=== PATIENT | female | born 1960 | race Caucasian/White ===

== ENCOUNTER 2017-11-01 09:47 | Emergency (ER) | payer OTHER ==
[2017-11-01] MEDS ORDERED: NS 1,000 ML IV ONE (09:56)
[2017-11-01] MEDS ORDERED: ONDANSETRON 4 MG/2 ML VIAL IVP ONE (09:56)
[2017-11-01 10:13] LABS: PLATELET COUNT 314 10^3/uL (150-400)
--- NOTE | 2017-11-01 10:49 | EDPHY ---
H & P Smoking Status: Current every day smoker Time Seen by Provider: 11/01/17 10:30 HPI/ROS: CHIEF COMPLAINT: Nausea, vomiting HISTORY OF PRESENT ILLNESS: 57-year-old female presents to the emergency department with multiple episodes of nausea vomiting and diarrhea since last evening. The patient is currently staying at the group home. No known ill contacts. No fevers or chills. Some abdominal cramping. No fevers or chills. No recent travel. No melena. No urinary symptoms. No back pain. She had some sneezing last night. No cough. No chest pain or difficulty breathing. REVIEW OF SYSTEMS: Constitutional: No fever, no chills. Eyes: No double or blurry vision. ENT: No sore throat. Respiratory: No cough, no shortness of breath. Cardiac: No chest pain. Gastrointestinal: Nausea, vomiting. Diarrhea. Abdominal cramping. Genitourinary: No dysuria. Musculoskeletal: No neck or back pain. Skin: No rashes. Neurological: No headache. (DeloresChen weir) Past Medical/Surgical History: Fibromyalgia, celiac disease (DeloresChen weir) Social History: Homeless staying at the group home from [place] (jBChen M) Physical Exam: General Appearance: Alert, no distress. No apparent distress. Resting in a darkened room. Eyes: Pupils equal and round. Extraocular motions are all intact. ENT: Mouth: Mucous membranes slightly dry purine. Respiratory: No wheezing, rhonchi, or rales, lungs are clear to auscultation. Cardiovascular: Regular rate and rhythm. Gastrointestinal: Abdomen is soft and nontender, no masses, no rebound or guarding, bowel sounds normal. No CVA tenderness bilaterally. Neurological: Alert and oriented x 3, cranial nerves II through XII grossly intact Skin: Warm and dry, no rashes. Musculoskeletal: Nontender to palpate along the cervical, thoracic or lumbar spine. Neck is supple. Extremities: Full range of motion and no peripheral edema. Psychiatric: Patient is oriented X 3, there is no agitation. (BjChen) Constitutional: Initial Vital Signs Temperature (C) 36.7 C 11/01/17 09:54 Heart Rate 118 H 11/01/17 09:54 Respiratory Rate 16 11/01/17 09:54 Blood Pressure 117/80 11/01/17 09:54 O2 Sat (%) 96 11/01/17 09:54 O2 Delivery Mode Room Air Allergies/Adverse Reactions: No Known Allergies Allergy (Unverified 11/01/17 09:53) Home Medications: Medication Instructions Recorded NK [No Known Home Meds] 11/01/17 Medical Decision Making ED Course/Re-evaluation: I do not think this patient has an acute abdomen. I do not think imaging studies are indicated. Patient was given 4 mg of IV Zofran. She was feeling better. She is requesting ice chips and something to drink. Laboratory studies reveal slightly elevated white blood cell count [id number]. Chemistries are otherwise unremarkable. Patient was requesting oral ibuprofen. She states"I want my 800 mg of ibuprofen ". She has a history of fibromyalgia and feels that this is acting up. Patient was given oral ibuprofen per her request. She was tolerating p.o. Fluids and will be discharged. She was given referral to [facility]. (Chen Lorenzo) I did not see this patient while she was in the emergency department. However her care was discussed with the PA while the patient was in the department. I agree with treatment plan and management (Marv Melendez) Differential Diagnosis: Including but not limited to dehydration, gastritis, peptic ulcer disease, electrolyte abnormality, gastroenteritis, anxiety (Chen Lorenzo) - Data Points Laboratory Results: Laboratory Results 11/01/17 10:00 11/01/17 10:00 11/01/17 10:00 WBC 12.31 10^3/uL H 10^3/uL (3.80-9.50) RBC 4.99 10^6/uL 10^6/uL (4.18-5.33) Hgb 15.8 g/dL g/dL (12.6-16.3) Hct 46.4 % % (38.0-47.0) Medications Given: Discontinued Medications Sodium Chloride (Ns) 1,000 mls @ 0 mls/hr IV ONCE ONE PRN Reason: Wide Open Stop: 11/01/17 09:57 Last Admin: 11/01/17 10:00 Dose: 1,000 mls Ibuprofen (Motrin) 800 mg PO EDNOW ONE Stop: 11/01/17 13:19 Last Admin: 11/01/17 13:23 Dose: 800 mg Ondansetron HCl (Zofran) 4 mg IVP EDNOW ONE Stop: 11/01/17 09:57 Last Admin: 11/01/17 10:00 Dose: 4 mg Departure - Departure Disposition: Home, Routine, Self-Care Clinical Impression: Gastroenteritis Condition: Good Instructions: Gastroenteritis (ED) Additional Instructions: Clear liquids and slowly advance diet as tolerated. Referrals: [facility],. [Clinic] - As per Instructions
[2017-11-01] MEDS ORDERED: ONDANSETRON DISINTEGRATING 4 MG TAB ONE (12:53)
[2017-11-01 13:13] VITALS: BP 114/77
[2017-11-01] MEDS ORDERED: IBUPROFEN 800 MG TAB PO ONE (13:18)
--- NOTE | 2017-11-01 19:27 | ASMTCMCOM ---
CM Note CM Note Notes: Pt presented to the ED for N/V/D since last night. Pt is homeless and has been staying at the [facility]. [place] Pt requesting assistance with various issues such as "not being able to carry this backpack around all day while I'm sick." We discussed the other resources this CM had to offer which was not much since pt already is enrolled in [facility] and her CM Robert and Elida(sp?) have been helping her with her resume, SSDI benefits, etc. Pt was concerned she wouldn't be able to stay at the [facility] long term [facility] because she didn't stay there last night. This CM called [facility] CM front man ([phone]) and spoke with NADER Jarquin, who confirmed patient would be eligible to stay at the [facility] (Tenriism Dwayne Quevedohamlet). This was communicated to the patient and she was appreciative. Pt provided one local bus pass (pt is disabled and has Medicare so provided her one of the discounted tickets). Pt aware of needing to follow up with CM at [facility] tomorrow and to also follow up with [facility] and establish a PCP. CM available for further assistance if needed. Date Signed: 11/01/2017 07:26 PM Electronically Signed By:Deneen Cano RN
--- NOTE | 2017-11-01 19:29 | ASDISCHSUM ---
Discharge Information Plan Status:Homeless/Nursing Home Medically Cleared to Leave: Discharge Date:11/01/2017 01:25 PM CM D/C Disposition:Streets (Homeless) ADT D/C Disposition:Home, Routine, Self-Care Projected Discharge Date:11/01/2017 01:25 PM Transportation at D/C:Bus Ticket Discharge Delay Reason: Follow-Up Date:11/01/2017 01:25 PM Discharge Slot: Final Diagnosis: Placement Information Patient Contact Information Contact Name:BERONICAValentina Relationship: Address: Home Phone: Work Phone: City: Alternate Phone: State/Zip Code: Email: Financial Information Financial Class:Medicare Primary Plan Desc:MEDICARE OUTPATIENT Primary Plan Number:[id number] Secondary Plan Desc: Secondary Plan Number: Assessment Information [facility] CM Progress Note CM Note CM Note Notes: Pt presented to the ED for N/V/D since last night. Pt is homeless and has been staying at the [facility]. Patient moved to [place] from [place] "[place] Pt requesting assistance with various issues such as "not being able to carry this backpack around all day while I'm sick." We discussed the other resources this CM had to offer which was not much since pt already is enrolled in [facility] and her CM Robert and Elida(sp?) have been helping her with her resume, SSDI benefits, etc. Pt was concerned she wouldn't be able to stay at the [facility] [place] [facility] because she didn't stay there last night. This CM called [facility] CM front maker lockstitch ([phone]) and spoke with NADER Jarquin, who confirmed patient would be eligible to stay at the [facility] (Religious Dwayne Rios). This was communicated to the patient and she was appreciative. Pt provided one local bus pass (pt is disabled and has Medicare so provided her one of the discounted tickets). Pt aware of needing to follow up with CM at [facility] tomorrow and to also follow up with [facility] and establish a PCP. CM available for further assistance if needed. Date Signed: 11/01/2017 07:26 PM Electronically Signed By:Deneen Cano RN Intervention Information Intervention Type:Health Clinic Date of Service:11/01/2017 07:27 PM Patient Type:Emergency Room Staff Member:VELMA Cano [place] Hours:0.25 Discipline:Accounts Receivable Specialist Severity: Comment:[facility] referral Intervention Type:Community Resources Date of Service:11/01/2017 07:27 PM Patient Type:Emergency Room Staff Member:VELMA Cano [place] Hours:0.25 Discipline:Accounts Receivable Specialist Severity: Comment:[facility] Intervention Type:Bus Pass Date of Service:11/01/2017 07:27 PM Patient Type:Emergency Room Staff Member:VELMA Cano [place] Hours:0.25 Discipline:Accounts Receivable Specialist Severity: Comment:
--- NOTE | 2017-11-04 14:07 | ASMTCMCOM ---
CM Note CM Note Notes: Met with Melania on Thursday at [facility]. She was weak and tired from her food poisoning episode. I set up two nights of respite at the [facility] and for her to follow up with [facility] today (Jaclyn Armendariz). She was given two cab rides and encouraged to speak with [facility] for other solutions for transportation. Date Signed: 11/04/2017 02:07 PM Electronically Signed By:Jennifer Womack RN
--- NOTE | 2017-11-04 14:13 | ASMTDSTRMG ---
Distress Management tool Please quileute the number Answers: 8 (0-10) that best describes how much distress you have been experiencing over the past week including today. Physical Problems Answers: Bathing or dressing Breathing difficulties Eating or appetite Fatigue, exhaustion or extreme tiredness Practical Problems Answers: Finance, work or housing Transport or parking Questions about my illness/treatment Family Problems Answers: Relationship with relatives/friends Emotional Problems Answers: Loneliness or isolation Sadness or depression Worry, fear or anxiety Hopelessness Other Problems: Notes: Melania mentions that her soul is or dying. She claims her sicknesses will kill her and that her PTSD "killed" her soul. Date Signed: 11/04/2017 02:13 PM Electronically Signed By:Jennifer Womack RN
== END 2017-11-01 13:25 | disposition home or self-care (01) ==
LOC: EDSEX 09:47
DX: K52.9 Noninfective gastroenteritis and colitis, unspecified (principal); F17.200 Nicotine dependence, unspecified, uncomplicated
CPT/HCPCS: 96361; 96374; 99284; J2405

== ENCOUNTER 2018-01-08 22:33 | Emergency (ER) | payer OTHER ==
[2018-01-08] MEDS ORDERED: NS 1,000 ML IV ONE (22:40)
[2018-01-08] MEDS ORDERED: KETOROLAC 15 MG/1 ML SDV IVP ONE (22:41)
--- NOTE | 2018-01-08 22:43 | CPEKG ---
Heart Rate: 97 RR Interval: 619 P-R Interval: 136 QRSD Interval: 78 QT Interval: 348 QTC Interval: 442 P [place]: 79 QRS [place]: 80 T Wave [place]: 32 EKG Severity - NORMAL ECG - EKG Impression: SINUS RHYTHM Electronically Signed By: Ahmet Pereira 10-Jan-2018 07:38:12
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
[2018-01-08 22:58] LABS: PLATELET COUNT 415 10^3/uL (150-400)
[2018-01-08] MEDS ORDERED: ALBUTEROL INH PREPACK MDI TAKEHOME ONE (23:40)
[2018-01-09] MEDS ORDERED: predniSONE 20 MG TAB ONE (00:04)
[2018-01-09] MEDS ORDERED: predniSONE 20 MG TAB PO ONE (00:05)
--- NOTE | 2018-01-09 01:17 | CPEKG ---
Heart Rate: 94 RR Interval: 638 P-R Interval: 144 QRSD Interval: 82 QT Interval: 356 QTC Interval: 446 P [place]: 81 QRS [place]: 83 T Wave [place]: 29 EKG Severity - BORDERLINE ECG - EKG Impression: SINUS RHYTHM EKG Impression: PROBABLE LEFT ATRIAL ABNORMALITY Electronically Signed By: Ahmet Pereira 10-Jan-2018 07:38:06
[2018-01-09 01:38] VITALS: BP 128/79
== END 2018-01-09 01:38 | disposition home or self-care (01) ==
LOC: EDUNIT#
DX: R07.89 Other chest pain (principal); J44.9 Chronic obstructive pulmonary disease, unspecified; E86.9 Volume depletion, unspecified; F17.200 Nicotine dependence, unspecified, uncomplicated
CPT/HCPCS: 71046; 93005; 96361; 96374; 99285; J1885; J7512; 84484-PO

== ENCOUNTER 2018-01-11 17:13 | Emergency (ER) | payer OTHER ==
[2018-01-11 17:17] VITALS: BP 123/75
--- NOTE | 2018-01-11 17:38 | EDPHY ---
ED Progress Note Narrative: Patient left without being seen
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
--- NOTE | 2018-01-12 18:48 | ASMTCMCOM ---
CM Note CM Note Notes: Followed up w/[facility] today. Spoke w/Diana and she states that Tommy w/PC has already tried to reach the patient ([phone]) several times today but has been unsuccessful. [facility] has also tried to reach the patient to let he know her Advair Rxn is ready to be picked up but could not get a hold of her. Diana states [facility] staff will continue to reach out to the patient and try to get her in for a follow-up appt. CM available for further assistance if needed. Date Signed: 01/12/2018 06:47 PM Electronically Signed By:Deneen Cano RN
== END 2018-01-11 17:39 | disposition left against medical advice (07) ==
DX: Z53.21 Procedure and treatment not carried out due to patient leaving prior to being seen by health care provider (principal)

== ENCOUNTER 2018-03-20 06:28 | Emergency (ER) | payer OTHER ==
[2018-03-20] MEDS ORDERED: KETOROLAC 15 MG/1 ML SDV IM ONE (06:45)
--- NOTE | 2018-03-20 06:56 | EDPHY ---
H & P Time Seen by Provider: 03/20/18 06:46 HPI/ROS: Chief Complaint: Left rib pain HPI: 57-year-old woman who was seen here 3 days ago after falling off her skateboard onto her left hand side. At that time she had a negative chest x- ray. She has been smoking marijuana to treat her pain. She woke up this morning with severe left posterior rib pain and states that it hurts to take a deep breath. No cough. No fevers or chills. The patient had left the emergency department during that visit to smoke and was attempting to ride her skateboard in the ED. ROS: 10 point Review of Systems is negative except as noted in the HPI. PMH: COPD Social History: Positive smoking, no alcohol, daily marijuana Family History: non-contributory Physical Exam: Gen: Awake, Alert, No Distress HEENT: Nose: no rhinorrhea Eyes: PERRLA, EOMI Mouth: Moist mucosa Neck: Supple, no JVD Chest: There is tenderness in the left posterior axillary rib margin along ribs 9 through 11, lungs clear to auscultation Heart: S1, S2 normal, no murmur Abd: Soft, non-tender, no guarding Back: no CVA tenderness, no midline tenderness Ext: no edema, non-tender Skin: no rash Neuro: CN II-XII intact, Sensation grossly intact, Strength 5/5 in bilateral upper and lower extremities - Medical/Surgical History Hx Asthma: No Hx Chronic Respiratory Disease: No Hx Diabetes: No Hx Cardiac Disease: No Hx Renal Disease: No Hx Cirrhosis: No Hx Alcoholism: No Hx HIV/AIDS: No Hx Splenectomy or Spleen Trauma: No Other PMH: fibro, celiac. Bronchitis December 2017. - Social History Smoking Status: Current every day smoker Constitutional: Initial Vital Signs Temperature (C) 36.5 C 03/20/18 07:08 Heart Rate 60 03/20/18 07:08 Respiratory Rate 18 03/20/18 07:08 Blood Pressure 181/95 H 03/20/18 07:08 O2 Sat (%) 95 03/20/18 07:08 O2 Delivery Mode Room Air Allergies/Adverse Reactions: No Known Allergies Allergy (Unverified 03/20/18 07:08) Home Medications: Medication Instructions Recorded Naproxen 01/08/18 Medical Decision Making - Diagnostics Imaging Results: Chest x-ray is negative for acute rib fracture infiltrate per my interpretation. ED Course/Re-evaluation: 57-year-old woman with left chest wall pain status post fall for skateboard 3 days ago. Chest x-ray today does not show any obvious rib fractures or infiltrate. She has received IM Toradol with improvement in her pain. She has not been taking any medications recommended to her from her prior visit. I have encouraged her to continue taking anti-inflammatories and acetaminophen as needed. She will follow up with her doctor at [facility] for any concerns. - Data Points Medications Given: Discontinued Medications Ketorolac Tromethamine (Toradol) 30 mg IM EDNOW ONE Stop: 03/20/18 06:46 Last Admin: 03/20/18 06:50 Dose: 30 mg Departure - Departure Disposition: Home, Routine, Self-Care Clinical Impression: Chest wall pain Condition: Good Instructions: Chest Wall Pain (ED) Additional Instructions: Take ibuprofen, 600 mg 3 times a day. Take this with food. May also take acetaminophen, 1000 mg 3 times a day alternating with ibuprofen. Follow up with [facility] in 2-3 days for further evaluation. Referrals: [facility],. [Clinic] - As per Instructions
[2018-03-20 07:29] VITALS: BP 162/89
== END 2018-03-20 07:29 | disposition home or self-care (01) ==
LOC: EDUNIT#
DX: R07.89 Other chest pain (principal); V00.131A Fall from skateboard, initial encounter; F17.210 Nicotine dependence, cigarettes, uncomplicated
CPT/HCPCS: 71046; 96372; 99284; J1885

== ENCOUNTER 2018-05-18 20:08 | Emergency (ER) | payer SELFPAY ==
[2018-05-18] MEDS ORDERED: LORazepam 2 MG/ML INJ ONE (20:18)
[2018-05-18] MEDS ORDERED: LORazepam 2 MG/ML INJ IVP ONE (20:24)
[2018-05-18 20:44] LABS: PLATELET COUNT 287 10^3/uL (150-400)
[2018-05-18] MEDS ORDERED: NS 1,000 ML IV ONE (20:51)
--- NOTE | 2018-05-18 20:56 | EDPHY ---
H & P Stated Complaint: cough. sob pt very anxious on arrival, c/o LUQ/LLL pain sudden onset Time Seen by Provider: 05/18/18 20:43 HPI/ROS: CHIEF COMPLAINT: Short of breath, left-sided chest pain HISTORY OF PRESENT ILLNESS: The patient is a 58-year-old homeless female with history of COPD who comes to the emergency department complaining of shortness of breath and left-sided lower rib pain for the last 2-3 days. It hurts with deep inspiration. It radiates to her left upper back. No fever. She has had a nonproductive cough. No history of cardiac disease. No abdominal pain. No nausea vomiting or diarrhea. No dysuria. Severity: Moderate Modifying factors: None REVIEW OF SYSTEMS: Constitutional: denies: chills, fever, recent illness, recent injury EENTM: denies: blurred vision, double vision, nose congestion Respiratory: See HPI Cardiac: denies: chest pain, irregular heart rate, lightheadedness, palpitations Gastrointestinal/Abdominal: denies: abdominal pain, diarrhea, nausea, vomiting, blood streaked stools Genitourinary: denies: dysuria, frequency, hematuria, pain Musculoskeletal: denies: joint pain, muscle pain Skin: denies: lesions, rash, jaundice, bruising Neurological: denies: headache, numbness, paresthesia, tingling, dizziness, weakness Hematologic/Lymphatic: denies: blood clots, easy bleeding, easy bruising Immunologic/allergic: denies: HIV/AIDS, transplant 10 systems reviewed and negative except as noted EXAM: GENERAL: Well-appearing, well-nourished and in no acute distress. HEAD: Atraumatic, normocephalic. EYES: Pupils equal round and reactive to light, extraocular movements intact, sclera anicteric, conjunctiva are normal. ENT: TMs normal, nares patent, oropharynx clear without exudates. Moist mucous membranes. NECK: Normal range of motion, supple without lymphadenopathy or JVD. LUNGS: Breath sounds clear to auscultation bilaterally and equal. No wheezes rales or rhonchi. HEART: Slightly tachycardic, regular rhythm without murmurs, rubs or gallops. ABDOMEN: Soft, nontender, normoactive bowel sounds. No guarding, no rebound. No masses appreciated. BACK: No CVA tenderness, no spinal tenderness, step-offs or deformities EXTREMITIES: Normal range of motion, no pitting or edema. No clubbing or cyanosis. NEUROLOGICAL: Cranial nerves II through XII grossly intact. Normal speech, normal gait. 5/5 strength, normal movement in all extremities, normal sensation , normal reflexes PSYCH: Normal mood, normal affect. SKIN: Warm, dry, normal turgor, no visible rashes or lesions. Source: Patient Exam Limitations: No limitations - Personal History Current Tetanus Diphtheria and Acellular Pertussis (TDAP): Unsure - Medical/Surgical History Hx Asthma: Yes Hx Chronic Respiratory Disease: Yes Hx Diabetes: No Hx Cardiac Disease: No Hx Renal Disease: No Hx Cirrhosis: No Hx Alcoholism: No Hx HIV/AIDS: No Hx Splenectomy or Spleen Trauma: No Other PMH: fibro, celiac. Bronchitis December 2017. copd - Family History Significant Family History: No pertinent family hx - Social History Smoking Status: Heavy smoker Alcohol Use: Sober Drug Use: None Constitutional: Initial Vital Signs Temperature (C) 36.4 C 05/18/18 20:33 Heart Rate 115 H 05/18/18 20:33 Respiratory Rate 26 H 05/18/18 20:33 Blood Pressure 126/86 H 05/18/18 20:33 O2 Sat (%) 94 05/18/18 20:33 O2 Delivery Mode Room Air Allergies/Adverse Reactions: No Known Allergies Allergy (Unverified 03/20/18 07:08) Home Medications: Medication Instructions Recorded Azithromycin 250 mg PO DAILY #4 tablet 05/18/18 Cordy Cepts 05/18/18 Medical Decision Making - Diagnostics EKG Interpretation: An EKG obtained and was read and documented in trace view. Please see trace view for full reading and report. Sinus rhythm, tachycardic, no acute ischemic changes Imaging Results: Imaging Impressions Chest X-Ray 05/18/18 20:31 Impression: 1. Equivocal patch of lingular infiltrate versus findings related to the patient's left breast. 2. Chronic emphysema. Imaging: Discussed imaging studies w/ scallop shucker Radiologist ED Course/Re-evaluation: 9:45 p.m. patient is resting. Her heart rate is 85. She is not hypoxic. She has very slight pneumonia versus bronchitis on x-ray. I will start her on azithromycin considering her history of COPD. She is agreeable with this plan. She declines further workup or testing at this time. Troponin is negative in the setting of several days with the pain. D-dimer also negative. Differential Diagnosis: Partial list of the Differential diagnosis considered include but were not limited to; pneumonia, bronchitis and although unlikely based on the history and physical exam, I also considered acute coronary disease, PE, kidney infection. I discussed these differential diagnoses and the plan with the patient as well as the usual and expected course. The patient understands that the diagnosis is provisional and that in medicine we are not always correct and that further workup is often warranted. Usual and customary warnings were given. All of the patient's questions were answered. The patient was instructed to return to the emergency department should the symptoms at all worsen or return, otherwise to followup with the physician as we discussed. - Data Points Laboratory Results: Laboratory Results 05/18/18 20:15 05/18/18 20:15 05/18/18 05/18/18 05/18/18 21:00 20:19 20:15 WBC RBC Hgb Hct MCV MCH MCHC RDW Plt Count MPV Neut % (Auto) Lymph % (Auto) [place] % (Auto) Eos % (Auto) Baso % (Auto) Nucleat RBC Rel Count Absolute Neuts (auto) Absolute Lymphs (auto) Absolute Monos (auto) Absolute Eos (auto) Absolute Basos (auto) Absolute Nucleated RBC Immature Gran % Immature Gran # D-Dimer Sodium 137 mEq/L mEq/L (135-145) Potassium 4.7 mEq/L mEq/L (3.3-5.0) Chloride 107 mEq/L mEq/L (97-110) Carbon Dioxide 21 mEq/l L mEq/l (22-31) Anion Gap 9 mEq/L mEq/L (6-14) BUN 19 mg/dL mg/dL (7-23) Creatinine 0.9 mg/dL mg/dL (0.6-1.0) Estimated GFR > 60 Glucose 115 mg/dL H mg/dL (70-100) Calcium 10.2 mg/dL mg/dL (8.5-10.4) POC Troponin I 0.00 ng/mL ng/mL (0.00-0.08) Urine Color YELLOW Urine Appearance CLEAR Urine pH 6.0 (5.0-7.5) Ur Specific [place] 1.014 (1.002-1.030) Urine Protein NEGATIVE (NEGATIVE) Urine Ketones NEGATIVE (NEGATIVE) Urine Blood 1+ H (NEGATIVE) Urine Nitrate NEGATIVE (NEGATIVE) Urine Bilirubin NEGATIVE (NEGATIVE) Urine Urobilinogen NEGATIVE EU EU (0.2-1.0) Ur Leukocyte Esterase NEGATIVE (NEGATIVE) Urine RBC 1-3 /hpf /hpf (0-3) Urine WBC 1-3 /hpf /hpf (0-3) Ur Epithelial Cells TRACE /lpf /lpf (NONE-1+) Urine Mucus TRACE /lpf /lpf (NONE-1+) Urine Glucose NEGATIVE (NEGATIVE) 05/18/18 05/18/18 20:15 20:15 WBC 10.59 10^3/uL H 10^3/uL (3.80-9.50) RBC 4.67 10^6/uL 10^6/uL (4.18-5.33) Hgb 14.7 g/dL g/dL (12.6-16.3) Hct 43.0 % % (38.0-47.0) MCV 92.1 fL fL (81.5-99.8) MCH 31.5 pg pg (27.9-34.1) MCHC 34.2 g/dL g/dL (32.4-36.7) RDW 12.5 % % (11.5-15.2) Plt Count 287 10^3/uL 10^3/uL (150-400) MPV 8.6 fL L fL (8.7-11.7) Neut % (Auto) 65.9 % % (39.3-74.2) Lymph % (Auto) 21.2 % % (15.0-45.0) [place] % (Auto) 11.3 % % (4.5-13.0) Eos % (Auto) 0.9 % % (0.6-7.6) Baso % (Auto) 0.4 % % (0.3-1.7) Nucleat RBC Rel Count 0.0 % % (0.0-0.2) Absolute Neuts (auto) 6.97 10^3/uL H 10^3/uL (1.70-6.50) Absolute Lymphs (auto) 2.25 10^3/uL 10^3/uL (1.00-3.00) Absolute Monos (auto) 1.20 10^3/uL H 10^3/uL (0.30-0.80) Absolute Eos (auto) 0.10 10^3/uL 10^3/uL (0.03-0.40) Absolute Basos (auto) 0.04 10^3/uL 10^3/uL (0.02-0.10) Absolute Nucleated RBC 0.00 10^3/uL 10^3/uL (0-0.01) Immature Gran % 0.3 % % (0.0-1.1) Immature Gran # 0.03 10^3/uL 10^3/uL (0.00-0.10) D-Dimer 0.28 ug/mLFEU ug/mLFEU (0.00-0.50) Sodium Potassium Chloride Carbon Dioxide Anion Gap BUN Creatinine Estimated GFR Glucose Calcium POC Troponin I Urine Color Urine Appearance Urine pH Ur Specific [place] Urine Protein Urine Ketones Urine Blood Urine Nitrate Urine Bilirubin Urine Urobilinogen Ur Leukocyte Esterase Urine RBC Urine WBC Ur Epithelial Cells Urine Mucus Urine Glucose Medications Given: Discontinued Medications Azithromycin (Zithromax) 500 mg PO EDNOW ONE PRN Reason: Protocol Stop: 05/18/18 21:45 Last Admin: 05/18/18 21:55 Dose: 500 mg Sodium Chloride (Ns) 1,000 mls @ 0 mls/hr IV EDNOW ONE; Wide Open PRN Reason: Protocol Stop: 05/18/18 20:52 Last Admin: 05/18/18 20:58 Dose: 1,000 mls Lorazepam (Ativan Injection) 0.5 mg IVP EDNOW ONE Stop: 05/18/18 20:25 Last Admin: 05/18/18 20:25 Dose: 0.5 mg Point of Care Test Results: Chemistry 05/18/18 20:19 POC Troponin I 0.00 ng/mL ng/mL (0.00-0.08) Departure - Departure Disposition: Home, Routine, Self-Care Clinical Impression: Cough, Bronchitis Condition: Fair Instructions: Acute Bronchitis (ED), Acute Cough (ED) Referrals: NONE *PRIMARY CARE P,. [Primary Care Provider] - As per Instructions [facility],. [Clinic] - As per Instructions Prescriptions: Azithromycin 250 mg PO DAILY #4 tablet
--- NOTE | 2018-05-18 20:57 | CPEKG ---
Test Reason : OPEN Blood Pressure : / mmHG Vent. Rate : 105 BPM Atrial Rate : 106 BPM P-R Int : 142 ms QRS Dur : 081 ms QT Int : 337 ms P-R-T Axes : 084 090 058 degrees QTc Int : 446 ms Sinus tachycardia Right atrial enlargement Borderline right axis deviation Consider left ventricular hypertrophy Confirmed by Bennett Duran ([id number]) on 05/18/2018 8:56:54 PM Referred By: Confirmed By:Bennett Duran
[2018-05-18] MEDS ORDERED: AZITHROMYCIN 250 MG TAB PO ONE (21:44)
[2018-05-18 22:02] VITALS: BP 120/90
== END 2018-05-18 22:02 | disposition home or self-care (01) ==
LOC: EDUNIT#
DX: R05 Cough (principal); J40 Bronchitis, not specified as acute or chronic; E86.9 Volume depletion, unspecified; F17.200 Nicotine dependence, unspecified, uncomplicated; Z87.09 Personal history of other diseases of the respiratory system; Z59.0 Homelessness
CPT/HCPCS: 84484-PO; 96374; J2060